=== PATIENT | female | born 1970 | race Caucasian/White ===

== ENCOUNTER 2024-05-29 11:25 | Emergency (ER) | payer OTHER ==
[~2024-05-29] VITALS: Ht 167.6 cm; Wt 89.1 kg
[~2024-05-29 11:25] MED LIST: CALCIUM CITRATE1 TA1 PO; DETROL LA4 PO; FLONASE NASAL S16 GM NS; LIALDA 1.2 GM1.2 GM PO; NEXIUM 40MG40 MG PO; NORVASC 5MG5 MG/TAB PO; RT ADVAIR 528 DISKUS IH; RT ADVAIR HFA 2312 G IH; RT SPIRIVA18 MCG IH; TYLENOL 325MG325 MG PO; WELLBUTRIN SR150 M1 PO; XOPENEX HF0.045 MG/A IH; ZYRTEC 10MG10 MG PO
[2024-05-29 11:28] VITALS: TEMP 97.6
[2024-05-29] MEDS ORDERED: hydrALAZINE 20 MG/ML 1 ML VIAL IV ONE (11:45)
[2024-05-29] MEDS ORDERED: droPERidol 2.5 MG/ML 2 ML VIAL IV ONE (11:45)
[2024-05-29] MEDS ORDERED: NS 1,000 ML IV ONE ×2 (11:45)
[2024-05-29 12:17] LABS: BASO # 0.1 K/mm3 (0.0-0.2); BASO % 0.6 % (0.0-2.0); EOS # 0.2 K/mm3 (0.0-0.7); EOS % 1.6 % (0.0-4.0); GRAN # 6.8 K/mm3 (1.4-6.5); HEMATOCRIT 39.1 % (37.0-47.0); HEMOGLOBIN 13.6 g/dl (12.5-16.0); LYMPH # 1.7 K/mm3 (1.2-3.4); LYMPH % 18.2 % (20.0-51.0); MEAN CELL VOLUME 88 fl (80.0-100.0); MEAN CORPUSCULAR HEMOGLOBIN 31 pg (27-31); MEAN CORPUSCULAR HGB CONC 35 g/dl (33.0-37.0); MEAN PLATELET VOLUME 10.2 fl (7.4-10.4); MONO # 0.7 K/mm3 (0.1-0.6); MONO % 7.2 % (1.7-9.3); PLATELET COUNT 299 K/mm3 (130-400); RED BLOOD COUNT 4.43 M/mm3 (4.10-5.30); REDCELL DISTRIBUTION WIDTH-CV 12.5 % (11.5-14.5)
[2024-05-29 12:36] LABS: ALANINE AMINOTRANSFERASE 33 U/L (0-55); ALKALINE PHOSPHATASE 94 U/L (40-150); ANION GAP 11 mmol/L (7-16); AST,SGOT 24 U/L (5-34); BILIRUBIN,TOTAL 0.5 mg/dL (0.2-1.2); BLOOD UREA NITROGEN 10 mg/dL (10-20); CALCIUM 9.7 mg/dL (8.4-10.2); CHLORIDE 102 mEq/L (98-107); CREATININE, serum 0.78 mg/dL (0.57-1.11); GLUCOSE 116 mg/dL (70-99); POTASSIUM 3.6 mEq/L (3.5-4.5); SODIUM 139 mEq/L (136-145)
[2024-05-29 12:49] LABS: TROPONIN-I < 0.010 ng/mL (0.00-0.033)
[2024-05-29 13:40] VITALS: BP 156/108; PULSE 79
== END 2024-05-29 13:40 | disposition home or self-care (01) ==
LOC: COL.ER 11:25
PROVIDERS: Personal Emergency Response Attendant
DX: R42 Dizziness and giddiness (principal); I10 Essential (primary) hypertension; Z79.899 Other long term (current) drug therapy
CPT/HCPCS: J0360; J1790; J7030